=== PATIENT | female | born 1955 | race Caucasian/White ===

== ENCOUNTER 2017-10-22 19:27 | Emergency (ER) | payer BC, OTHER ==
[~2017-10-22] VITALS: Ht 170.2 cm; Wt 95.7 kg
[2017-10-22 19:30] VITALS: BP 144/88
[2017-10-22 20:19] LABS: CULTURE INDICATED? YES; MICROSCOPIC INDICATED
[2017-10-22] MEDS ORDERED: PANT40TA5 PO (20:54)
[2017-10-22] MEDS ORDERED: SIMV20TA3 PO (20:54)
[2017-10-22] MEDS ORDERED: LEVO25TA4 PO (20:54)
== END 2017-10-22 21:04 | disposition home or self-care (01) ==
LOC: ED 20:58
DX: N30.01 Acute cystitis with hematuria (principal)
CPT/HCPCS: 74176; 81001; 87086; 87186; 99285

== ENCOUNTER → 2018-07-05 | Outpatient (CLI) | payer OTHER ==
[~2018-07-05] MED LIST: LEVO25TA4 PO; PANT40TA5 PO; SIMV20TA3 PO
== END | disposition home or self-care (01) ==
LOC: CFH 07:05
PROVIDERS: ATTEND Internal Medicine Cardiovascular Disease
DX: I10 Essential (primary) hypertension (principal); R07.89 Other chest pain
CPT/HCPCS: 78452; 93017; 93306; A9502

== ENCOUNTER → 2019-07-10 | Outpatient (CLI) | payer BC | END | disposition home or self-care (01) | LOC: CFH 14:53 | PROVIDERS: ATTEND Nurse Practitioner Primary Care | DX: Z12.31 Encounter for screening mammogram for malignant neoplasm of breast (principal); N64.89 Other specified disorders of breast | CPT/HCPCS: 77067 ==